=== PATIENT | male | born 1960 | race Caucasian/White ===

== ENCOUNTER 2019-04-14 10:18 | Emergency (ER) | payer BC, OTHER ==
[2019-04-14] MEDS: TAMSULOSIN 0.4 MG CAP PO ONE (11:00)
[2019-04-14] MEDS: ALPRAZolam 0.25 MG TAB PO ONE (11:00)
--- NOTE | 2019-04-14 11:00 | ED.PDOC ---
History of Present Illness - General Chief Complaint: General Stated Complaint: L flank pain, nausea, vomitting. Time Seen by Provider: 04/14/19 10:40 Source: patient Exam Limitations: no limitations - History of Present Illness Initial Comments: Benjamin Rosado 58 y/o male stated that he had dull left flank pain since yesterday went away and seen his primary Md yesterday EKG taken was normal.Today had regular BM then had another onset of dull intermittent left flank pain afterwards which persisted up to the time seen at ER.Denies hematuria.melena,constipation,or abdominal pain. Timing/Duration: 1-3 hours Severity: moderate Improving Factors: nothing Worsening Factors: nothing Associated Symptoms: other - see hpi Allergies/Adverse Reactions: Allergies NO KNOWN ALLERGY Allergy (Verified 04/14/19 10:47) Home Medications: Ambulatory Orders Acetaminophen W/ Codeine [Tylenol/Codeine #4 300-60 mg] 1 ea PO Q4HR PRN #14 tab 04/14/19 Aspirin [Aspirin Adult Low Dose] 81 mg PO DAILY 04/14/19 Atorvastatin Calcium 40 mg PO DAILY 04/14/19 Tamsulosin [Flomax] 0.4 mg PO QD #5 cap 04/14/19 Review of Systems - Review of Systems Constitutional: States: no symptoms reported EENTM: States: no symptoms reported Respiratory: States: no symptoms reported Cardiology: States: no symptoms reported Gastrointestinal/Abdominal: States: see HPI, other - left flank pain Musculoskeletal: States: no symptoms reported Skin: States: no symptoms reported Neurological: States: no symptoms reported All other Systems: Reviewed and Negative Past Medical History (General) - Patient Medical History Hx Stroke: No Hx of COPD: No Hx Cardiac Disorders: Yes - Bilateral stents cardiac Hx Congestive Heart Failure: No Hx Hypertension: No Hx Diabetes: No Hx Cancer: No Surgical History: other - left knee arthroscopy - Vaccination History Hx Influenza Vaccination: No Hx Pneumococcal Vaccination: No Immunizations Up to Date: No - Social History Hx Tobacco Use: No Hx Alcohol Use: Yes Hx Substance Use: No Hx Substance Use Treatment: No Hx Depression: No - Female History Patient is a Female of Child Bearing Age (10 -59 yrs old): No Patient : No Family Medical History - Family History Father Living Status: Unknown Hx Family Diabetes: Yes - dad Mother Living Status: Unknown Hx Family Cancer: Yes Physical Exam - Physical Exam General Appearance: Alert, Anxious, No apparent distress Eye Exam: bilateral normal Ears, Nose, Throat: hearing grossly normal Neck: non-tender, normal inspection Respiratory: chest non-tender, lungs clear, normal breath sounds, no respiratory distress Cardiovascular/Chest: normal peripheral pulses, regular rate, rhythm, no murmur Peripheral Pulses: radial,right: 2+, radial,left: 2+ Gastrointestinal/Abdominal: non tender, soft, no organomegaly Back Exam: no CVA tenderness, no vertebral tenderness Extremity: no pedal edema, no calf tenderness Neurologic: alert, oriented x 3 Skin Exam: normal color, warm/dry Progress - Progress Progress: 04/14/19 11:02 Vital Signs - 8 hr 04/14/19 10:25 Temperature 96.7 F L Pulse Rate [L 61 finger] Respiratory 18 Rate Blood Pressure 187/105 [L brachial] O2 Sat by Pulse 97 Oximetry - Results/Orders Results/Orders: 04/14/19 10:44 IV Care:Saline Lock per Protoc QSHIFT URINALYSIS Stat 04/14/19 10:55 Lactated Ringers [Lr] 1,000 ml IVS ONCE 04/14/19 11:21 CARDIAC PANEL,ER Stat HEPATIC FUNCTION PANEL Stat Laboratory Results - last 24 hr 04/14/19 11:21 WBC 4.9 RBC 4.74 Hgb 15.8 Hct 46.3 MCV 97.7 H MCH 33.2 H MCHC 34.0 RDW 13.4 Plt Count 271 MPV 8.6 Absolute Neuts (auto) 3.70 Absolute Lymphs (auto) 0.70 L Absolute Monos (auto) 0.30 Absolute Eos (auto) 0.10 Absolute Basos (auto) 0.00 Neutrophils % 75.5 Lymphocytes % 15.0 L Monocytes % 7.0 Eosinophils % 2.1 Basophils % 0.4 PT 10.4 INR 1.04 PTT (SP) 21.4 L Sodium 137 Potassium 4.3 Chloride 104 Carbon Dioxide 22 Anion Gap 15.3 BUN 12 Creatinine 0.98 BUN/Creatinine Ratio 12.2 Random Glucose 153 H Serum Osmolality 276.6 Calcium 9.6 Magnesium 2.3 Total Bilirubin 1.2 H Direct Bilirubin 0.2 Indirect Bilirubin 1.0 H AST 27 ALT 25 Alkaline Phosphatase 92 Creatine Kinase 91 Serum Total Protein 8.0 Albumin 4.7 Discuss all test results with patient - EKG/XRAY/CT CT Ordered: Yes - abd /p-3 mm left uvj ureterolithiais Departure - Departure Clinical Impression: Left flank pain, Ureterolithiasis Time of Disposition: 12:30 Disposition: Discharge to Home or Self Care Condition: Fair Departure Forms: ED Discharge - Pt. Copy, Patient Portal Self Enrollment Instructions: How to Strain Your Urine, Kidney Stones (DC) Referrals: ALANNAH CARO MD [Primary Care Provider] - 1-2 Weeks Prescriptions: Acetaminophen W/ Codeine [Tylenol/Codeine #4 300-60 mg] 1 ea PO Q4HR PRN #14 tab PRN Reason: Pain Tamsulosin [Flomax] 0.4 mg PO QD #5 cap Home Medications: Ambulatory Orders Acetaminophen W/ Codeine [Tylenol/Codeine #4 300-60 mg] 1 ea PO Q4HR PRN #14 tab 04/14/19 Aspirin [Aspirin Adult Low Dose] 81 mg PO DAILY 04/14/19 Atorvastatin Calcium 40 mg PO DAILY 04/14/19 Tamsulosin [Flomax] 0.4 mg PO QD #5 cap 04/14/19 Additional Instructions: Return to emergency Room as needed;Recheck with primary Md 17 April 2019;Continue with all home medications
--- NOTE | 2019-04-14 11:26 | CT ---
EXAM: CT Abdomen and Pelvis Without Intravenous Contrast CLINICAL HISTORY: 58 years old and is Male; flank pain TECHNIQUE: Axial computed tomography images of the abdomen and pelvis without intravenous contrast. Sagittal and coronal reformatted images were created and reviewed. This CT exam was performed using one or more of the following dose reduction techniques: automated exposure control, adjustment of the mA and/or kV according to patient size, and/or use of iterative reconstruction technique. COMPARISON: No relevant prior studies available. FINDINGS: Limitations: None. Lung bases: Unremarkable. No mass. No consolidation. ABDOMEN: Liver: Unremarkable. Gallbladder and bile ducts: Unremarkable. No calcified stones. No ductal dilation. Pancreas: Unremarkable. No ductal dilation. Spleen: Unremarkable. No splenomegaly. Adrenals: There is a 9 mm low-density left adrenal nodule likely adenoma. Right appears normal. Kidneys and ureters: There is mild left hydroureteronephrosis. There is a 3 mm stone at or just past the left UVJ. Right kidney appears normal. Stomach and bowel: There is colonic diverticulosis. No intestinal obstruction or inflammation. No mucosal thickening. PELVIS: Appendix: No findings to suggest acute appendicitis. Bladder: Unremarkable. No stones. Reproductive: Unremarkable as visualized. ABDOMEN and PELVIS: Intraperitoneal space: Unremarkable. No free air. No significant fluid collection. Bones/joints: No acute fracture. No dislocation. Soft tissues: Small bilateral inguinal hernias noted containing fat. Vasculature: There is mild atherosclerosis of the aorta and branches. No aneurysm. Lymph nodes: Unremarkable. No enlarged lymph nodes. IMPRESSION: There is mild left hydroureteronephrosis. There is a 3 mm stone at or just past the left UVJ. Electronically signed by: Kimberly Uriarte MD 04/14/2019 11:25 AM CDT
[2019-04-14] MEDS: LACTATED RINGERS 1,000 ML IVS ONE (11:30)
[2019-04-14] MEDS: PROCHLORPERAZINE INJ 10 MG/2 ML VIAL IV ONE (11:31)
[2019-04-14] MEDS: MORPHINE SULFATE INJ 10 MG/ML VIAL IV ONE (11:31)
[2019-04-14] MEDS: KETOROLAC TROMETHAMINE INJ 30 MG/ML VIAL IV ONE (11:32)
[2019-04-14 12:46] VITALS: BP 155/71; TEMP 96.9; O2SAT 94
== END 2019-04-14 12:46 | disposition home or self-care (01) ==
LOC: ER 10:18
DX: N13.2 Hydronephrosis with renal and ureteral calculous obstruction (principal); I51.9 Heart disease, unspecified; Z95.5 Presence of coronary angioplasty implant and graft; Z79.899 Other long term (current) drug therapy; Z79.82 Long term (current) use of aspirin
CPT/HCPCS: 36415; 74176; 80048; 80076; 82550; 82553; 84484; 85025; 85610; 85730; J0780; J1885; J2270; J7120

== ENCOUNTER → 2020-06-16 | Outpatient (CLI) | payer BC | LOC: GMAE 10:57 | PROVIDERS: ATTEND Family Medicine | DX: Z00.00 Encounter for general adult medical examination without abnormal findings (principal) ==

== ENCOUNTER 2020-08-18 13:27 | Outpatient (CLI) | payer BC | END 2020-08-19 13:05 | disposition home or self-care (01) | LOC: INFRM 13:27 | PROVIDERS: ATTEND Family Medicine | DX: U07.1 COVID-19 (principal); I25.10 Atherosclerotic heart disease of native coronary artery without angina pectoris; I10 Essential (primary) hypertension; Z23 Encounter for immunization ==